=== PATIENT | female | born 1970 | race Caucasian/White ===

== ENCOUNTER → 2016-07-04 | Outpatient (CLI) | payer BC ==
--- NOTE | 2016-07-04 15:48 | XR ---
Left RIBS HISTORY: Cough, chest pain 4 views of the left ribs correlated to prior exam chest x-ray November No displaced rib fractures. No pneumothorax or pleural effusion. Patient is post median sternotomy. IMPRESSION: No acute abnormality evident, bone scan could be performed for increased sensitivity as i ndicated.
== END | disposition home or self-care (01) ==
LOC: RADXRMAIN 14:57
PROVIDERS: ATTEND Internal Medicine
DX: J06.9 Acute upper respiratory infection, unspecified (principal); R07.81 Pleurodynia

== ENCOUNTER → 2016-08-21 | Outpatient (CLI) | payer BC ==
--- NOTE | 2016-08-22 07:31 | XR ---
EXAMINATION TYPE: XR chest 2V DATE OF EXAM: 08/21/2016 4:27 PM COMPARISON: NONE INDICATION: Increasing shortness of breath TECHNIQUE: Single frontal view of the chest is obtained. FINDINGS: The heart size is normal. The pulmonary vasculature is normal. The lungs are clear. IMPRESSION: 1. No acute pulmonary process.
== END ==
LOC: RADXRMAIN 16:10
PROVIDERS: ATTEND Internal Medicine
DX: R07.9 Chest pain, unspecified (principal); R09.1 Pleurisy
CPT/HCPCS: 36415; 71020; 82785

== ENCOUNTER → 2019-04-11 | Outpatient (CLI) | payer BC ==
[2019-04-11 11:38] LABS: HCT 42.2 % (34.0-46.0); HGB 14.1 gm/dL (11.4-16.0); MCH 29.5 pg (25.0-35.0); MCHC 33.4 g/dL (31.0-37.0); MCV 88.4 fL (80.0-100.0); Platelet Count 267 k/uL (150-450); RBC 4.78 m/uL (3.80-5.40); RDW 12.9 % (11.5-15.5); WBC 5.6 k/uL (3.8-10.6)
== END | disposition home or self-care (01) ==
LOC: LABWHC1 10:57
PROVIDERS: ATTEND Orthopaedic Surgery
DX: Z01.812 Encounter for preprocedural laboratory examination (principal); M17.11 Unilateral primary osteoarthritis, right knee
CPT/HCPCS: 36415; 85027; 87070

== ENCOUNTER → 2020-04-20 | Outpatient (CLI) | payer BC ==
--- NOTE | 2020-04-21 06:57 | XR ---
EXAMINATION TYPE: XR chest 2V DATE OF EXAM: 04/20/2020 COMPARISON: 08/21/2016 HISTORY: Chest pain TECHNIQUE: Frontal and lateral views of the chest are obtained. FINDINGS: There is no focal air space opacity. No evidence for pneumothorax. No pleural effusion. The cardiac silhouette size is within normal limits. The osseous structures are grossly intact. IMPRESSION: 1. No acute cardiopulmonary process.
== END | disposition home or self-care (01) ==
LOC: RAD 16:28
PROVIDERS: ATTEND Family Medicine
DX: R05 Cough (principal)
CPT/HCPCS: 71046

== ENCOUNTER → 2020-04-26 | Outpatient (CLI) | payer BC | END | disposition home or self-care (01) | LOC: LABWHC1 13:33 | PROVIDERS: ATTEND Family Medicine | DX: Z20.828 Contact with and (suspected) exposure to other viral communicable diseases (principal) | CPT/HCPCS: U0003; C9803 ==

== ENCOUNTER → 2022-02-15 | Outpatient (CLI) | payer BC ==
--- NOTE | 2022-02-17 13:34 | MM ---
Reason for Exam: Screening (asymptomatic). Last mammogram was performed 7 year(s) and 7 month(s) ago. Patient History: Menarche at age 14. Patient has no children. Hormonal Contraceptives, starting at age 37 for 3 years. 06/02/2002, Benign Ultrasound-Guided Core Biopsy on the left side. Paternal grandmother had breast cancer. Last menstrual period: 02/13/2022 Risk Values: Beth 5 year model risk: 1.3%. NCI Lifetime model risk: 11.6%. Prior Study Comparison: 04/24/2008 Bilateral Screening Mammogram, [facility]. 01/20/2011 Bilateral Diagnostic Mammogram, [facility]. 07/23/2014 Bilateral Screening Mammogram, [facility]. Tissue Density: The breast tissue is heterogeneously dense. This may lower the sensitivity of mammography. Findings: Analyzed By CAD. Chronic nodularity is within the left breast. No suspicious groups of microcalcifications, spiculated or lobular masses, architectural distortion or other secondary signs of malignancy are mammographically apparent. Overall Assessment: Benign, BI-RAD 2 Management: Screening Mammogram of both breasts in 1 year. A negative mammogram report should not preclude additional follow up of suspicious palpable abnormalities. Patient should continue monthly self breast exam. A clinical breast exam by your physician is recommended on an annual basis and results should be correlated with mammographic findings. Electronically signed and approved by: Hernesto Resendiz D.O. Radiologis
== END | disposition home or self-care (01) ==
LOC: RADMAMWWP 16:03
PROVIDERS: ATTEND Obstetrics & Gynecology
DX: Z12.31 Encounter for screening mammogram for malignant neoplasm of breast (principal)
CPT/HCPCS: 77063; 77067

== ENCOUNTER → 2022-03-02 | Outpatient (CLI) | payer BC ==
[2022-03-02 18:23] LABS: Basophils # (A) 0.07 X 10*3/uL (0.00-0.10); Basophils % (A) 1.1 %; Eosinophils # (A) 0.22 X 10*3/uL (0.04-0.35); Eosinophils % (A) 3.6 %; HCT 38.2 % (37.2-46.3); HGB 12.3 g/dL (12.0-15.0); Immature Grans, Automated 0.3 %; Lymphocytes # (A) 1.49 X 10*3/uL (0.90-5.00); Lymphocytes % (A) 24.3 %; MCH 28.7 pg (27.0-32.0); MCHC 32.2 g/dL (32.0-37.0); Mean Platelet Volume 11.6 fL (9.5-12.2); Monocytes # (A) 0.51 X 10*3/uL (0.20-1.00); Monocytes % (A) 8.3 %; NRBC Per 100 WBC 0 /100 WBCS (0.0-0.0); Neutrophils # (A) 3.81 X 10*3/uL (1.80-7.70); Neutrophils % (A) 62.4 %; Platelet Count 294 X 10*3/uL (140-440); RBC 4.29 X 10*6/uL (4.10-5.20); RDW 13.9 % (11.5-14.5); WBC 6.12 X 10*3/uL (4.50-10.00)
== END | disposition home or self-care (01) ==
LOC: LABPAT 13:25
PROVIDERS: ATTEND Obstetrics & Gynecology
DX: Z01.812 Encounter for preprocedural laboratory examination (principal); Z01.818 Encounter for other preprocedural examination; N93.8 Other specified abnormal uterine and vaginal bleeding
CPT/HCPCS: 85025; 93005

== ENCOUNTER 2022-03-06 06:59 | Day surgery (SDC) | payer BC ==
[2022-03-01 13:57] VITALS: BMI 33.0
--- NOTE | 2022-03-03 12:28 | HP ---
HISTORY AND PHYSICAL HISTORY: This is a 51-year-old 0 woman with findings of endometrial polyp on pelvic ultrasound in the setting of dysmenorrhea and irregular uterine bleeding. Secondary to patient discomfort and difficulty visualizing, office biopsy procedure was not possible. She was therefore scheduled for a diagnostic hysteroscopy with dilation and curettage procedure. ALLERGIES: Statin drugs cause swelling. MEDICATIONS: 1. Metoprolol tartrate 25 mg daily. 2. Naproxen 500 mg b.i.d. p.r.n. 3. Topamax 100 mg b.i.d. 4. Zyrtec 10 mg daily. 5. Hydrocodone/acetaminophen 7.5/325 mg q.6 hours p.r.n. PAST MEDICAL HISTORY: Migraine headaches, herniated disk disease, fibroid uterus, and dysmenorrhea. PAST SURGICAL HISTORY: Back surgery 2009, benign right breast biopsy in 2002, colonoscopy, hemorrhoidectomy, inguinal hernia repair, and knee surgery. She has also had an atrial myxoma removal. REPRODUCTIVE HISTORY: She is a 1 with an LMP of 01/19/2022. She is not on contraception. No history of abnormal Pap smears or STDs. SOCIAL HISTORY: Negative for tobacco, alcohol, and drug use. She does use recreational marijuana. FAMILY HISTORY: Positive for colon cancer, diabetes, stroke, and hypertension. REVIEW OF SYSTEMS: Negative except for irregular vaginal bleeding. PHYSICAL EXAMINATION: VITAL SIGNS: Weight 230 pounds, height 5 feet 9 inches, blood pressure 110/72, and pulse 72. GENERAL: This is a very pleasant female, in no apparent distress. HEENT: Exam is unremarkable. LUNGS: Clear to auscultation bilaterally. HEART: Regular rate and rhythm. ABDOMEN: Soft and nontender with no rebound, no guarding, and no flank pain. LOCAL AREA NETWORK ADMINISTRATOR: On pelvic examination, the cervix is difficult to visualize secondary to patient's body habitus. There are no gross lesions or abnormalities appreciated. The uterus is limited in exam secondary to body habitus, however, no pelvic masses are palpable. NEUROLOGIC: Grossly intact with no focal deficits. Mood and affect are normal. ASSESSMENT: This is a 51-year-old 0 woman with irregular vaginal bleeding, dysmenorrhea, and findings of possible endometrial polyp on ultrasound. Unable to tolerate tissue sampling in the office setting due to inadequate visualization and patient discomfort. She is therefore scheduled for a diagnostic hysteroscopy with dilation and curettage. This procedure has been reviewed in detail with the patient including risks which include bleeding, infection, injury to the uterus with possible uterine perforation, inadequate pathology specimen and/or ongoing bleeding. The patient understands these risks and agrees to proceed. MMODL / IJN: [id number] /
[~2022-03-06 06:59] MED LIST: Pre Op ABX Message 1 EACH MISC MISCELLANE ONE
[2022-03-06] MEDS ORDERED: LACTATED RINGERS 1,000 ML IV ONE (07:18)
[2022-03-06] MEDS ORDERED: LACTATED RINGERS 1,000 ML IV SCH (07:19)
[2022-03-06] MEDS ORDERED: DEXAMETHASONE SOD PHOSPHATE 4 MG/ML 1 ML VIAL IV ONE (07:19)
[2022-03-06] MEDS ORDERED: LIDOCAINE 1% (10MG/ML) FOR IV START INTRADERMA PRN (07:19)
[2022-03-06] MEDS ORDERED: SCOPOLAMINE 1 MG/72 HR PATCH TRANSDERM ONE (07:19)
[2022-03-06] MEDS ORDERED: ONDANSETRON 4 MG/2 ML VIAL IVP ONE (07:19)
[2022-03-06 07:42] LABS: Glucose,Whole Blood 102 mg/dL (70-110)
[2022-03-06] MEDS ORDERED: MIDAZOLAM 2 MG/2 ML VIAL ONE (08:17)
[2022-03-06] MEDS ORDERED: LIDOCAINE 2% INJ 20 MG/ML (2 ML VIAL) ONE (08:17)
[2022-03-06] MEDS ORDERED: KETOROLAC 15 MG/ML 1 ML VIAL ONE (08:17)
[2022-03-06] MEDS ORDERED: PROPOFOL 10 MG/ML 20 ML VIAL IV ONE (08:17)
[2022-03-06] MEDS ORDERED: fentaNYL (PF) 50 MCG/ML 2 ML AMP ONE (08:17)
--- NOTE | 2022-03-06 09:02 | P.OP ---
Date of Procedure: 03/06/22 Preoperative Diagnosis: Dysfunctional uterine bleeding and possible endometrial polyp Postoperative Diagnosis: Same Procedure(s) Performed: Diagnostic hysteroscopy and dilation and curettage Anesthesia: MAC Surgeon: Devika Law Estimated Blood Loss (ml): 5 IV fluids (ml): 350 Urine output (ml): 25 Pathology: other (Endometrial curettings) Condition: stable Disposition: PACU Operative Findings: Shaggy endometrium with possible polyp emanating from the posterior fundal region Description of Procedure: After the patient was met in the preoperative holding area and all questions were answered, she was taken to the operating room where anesthetic was admitted administered without incident. Appropriate timeout procedure was undertaken. She was positioned, prepped and draped in the dorsal lithotomy position. Bladder was drained for 25 mL of clear urine. Exam under anesthetic was undertaken. Speculum was placed in the vagina and the cervix was grasped anteriorly with a single-tooth tenaculum. Lidocaine plus epinephrine paracervical block was placed. The uterus was sounded to 7 cm. The cervix was then sequentially dilated to allow for passage of the diagnostic hysteroscope. Hysteroscope was introduced and the above findings were noted. Hysteroscope was removed and the cervix was further dilated to allow for passage of the small sharp banjo curet. The uterus was circumferentially curettaged with a small amount of tissue obtained consistent with findings on hysteroscopy. Following curettage the hysteroscope was reintroduced and the no further endometrial debris was noted. There is no active bleeding. Instruments were then removed from the uterus and cervix. Cervix was observed and no active bleeding was noted. The patient was therefore awoken from anesthetic and transported recovery area in good condition.
[2022-03-06 09:14] VITALS: TEMP 97.5
[2022-03-06 09:48] VITALS: RESP 18
[2022-03-06 10:17] VITALS: BP 109/75; PULSE 64
[2022-03-07] MEDS ORDERED: HYDROmorphone 0.5 MG/0.5 ML SYRINGE IVP PRN (07:00)
== END 2022-03-06 10:24 | disposition home or self-care (01) ==
LOC: OR 06:59
PROVIDERS: ATTEND Obstetrics & Gynecology
DX: N93.8 Other specified abnormal uterine and vaginal bleeding (principal); Z80.0 Family history of malignant neoplasm of digestive organs; Z82.49 Family history of ischemic heart disease and other diseases of the circulatory system; Z83.3 Family history of diabetes mellitus; Z88.8 Allergy status to other drugs, medicaments and biological substances; Z79.899 Other long term (current) drug therapy
CPT/HCPCS: 81025; 88305; 84703; 58558; J2250; J2405; J3010; J1885; J2704; J2001

== ENCOUNTER → 2022-08-28 | Outpatient (CLI) | payer BC ==
[2022-08-28 15:37] LABS: Basophils # (A) 0.06 X 10*3/uL (0.00-0.10); Basophils % (A) 1.3 %; Eosinophils # (A) 0.12 X 10*3/uL (0.04-0.35); Eosinophils % (A) 2.6 %; HGB 13.4 g/dL (12.0-15.0); Immature Grans, Automated 0.2 %; Lymphocytes % (A) 25.7 %; MCH 28.5 pg (27.0-32.0); MCHC 31.9 g/dL (32.0-37.0); MCV 89.2 fL (80.0-97.0); Mean Platelet Volume 11.9 fL (9.5-12.2); Monocytes # (A) 0.36 X 10*3/uL (0.20-1.00); Monocytes % (A) 7.7 %; NRBC Per 100 WBC 0 /100 WBCS (0.0-0.0); Neutrophils # (A) 2.92 X 10*3/uL (1.80-7.70); Neutrophils % (A) 62.5 %; Platelet Count 245 X 10*3/uL (140-440); RBC 4.71 X 10*6/uL (4.10-5.20); RDW 13.2 % (11.5-14.5); WBC 4.67 X 10*3/uL (4.50-10.00)
[2022-08-28 15:49] LABS: African American GFR (CKD) 91.7 (60.0-200.0); Anion Gap 10.7 mmol/L (10.00-18.00); Blood Urea Nitrogen 14.5 mg/dL (9.0-27.0); Carbon Dioxide 21.9 mmol/L (20.0-27.5); Non-African American GFR(CKD) 79.1 (60.0-200.0); Potassium 4.2 mmol/L (3.5-5.5)
== END | disposition home or self-care (01) ==
LOC: LABPAT 11:57
PROVIDERS: ATTEND Obstetrics & Gynecology Obstetrics
DX: Z01.812 Encounter for preprocedural laboratory examination (principal); N93.8 Other specified abnormal uterine and vaginal bleeding; R10.2 Pelvic and perineal pain; N80.00 Endometriosis of the uterus, unspecified
CPT/HCPCS: 80051; 82565; 82947; 84520; 85025; 87086; 93005

== ENCOUNTER 2022-09-05 05:41 | Day surgery (SDC) | payer BC ==
--- NOTE | 2022-09-04 16:40 | P.HPOB ---
History of Present Illness H&P Date: 09/04/22 Chief Complaint: dysfunctional uterine bleeding, Dysmenorrhea, adenmyosis on US This is a 51-year-old 0 that presents for scheduled robotic-assisted vaginal hysterectomy with bilateral salpingectomy, diagnostic cystoscopy. Patient has a history significant for dysfunction uterine bleeding, dysmenorrhea, adenomyosis given her ultrasound findings. Patient a recent hysteroscopy D&C for an endometrial polyp which she states she got a "1 month" reprieve from bleeding after the procedure and has subsequently continued to have dysfunctional uterine bleeding and chronic pelvic pain. Ultrasound with concerns for adenomyosis. Given ultrasound findings I am concerned she would develop post ablation syndrome from an endometrial ablation and ultimately end up with robotic hysterectomy. Patient does not desire childbearing and wishes definitive treatment with hysterectomy. Review of Systems Constitutional: Denies fatigue, Denies fever Ears, nose, mouth and throat: Denies headache Cardiovascular: Reports leg edema Respiratory: Denies dyspnea Gastrointestinal: Denies constipation, Denies diarrhea, Denies nausea, Denies v omiting Genitourinary: Reports as per HPI, Reports abnormal vaginal bleeding, Reports dysmenorrhea, Denies Past Medical History Past Medical History: Musculoskeletal Disorder Additional Past Medical History / Comment(s): TACHYCARDIA-takes metoprolol for, migraines, hx. of myxoma-had removed 2002, sees card. yearly @[place], BACK PAIN, SEASONAL ALLERGIES, KIDNEY STONES History of Any Multi-Drug Resistant Organisms: None Reported Past Surgical History: Back Surgery, Hernia Repair, Joint Replacement, Orthopedic Surgery Additional Past Surgical History / Comment(s): CARDIAC TUMOR(MYXOMA) REMOVED 2002, left shoulder surg. as a teen. RIGHT TOTAL KNEE REPLACED. RIGHT FOOT SURGERY. right SHOULDER SURGERY Past Anesthesia/Blood Transfusion Reactions: No Reported Reaction Smoking Status: Never smoker - Past Family History Mother Family Medical History: No Reported History Medications and Allergies Home Medications Medication Instructions Recorded Confirmed Type Cetirizine HCl [Zyrtec] 10 mg PO DAILY 03/01/22 08/29/22 History HYDROcodone/APAP 7.5-325MG [[place] 1 tab PO TID PRN 03/01/22 08/29/22 History 7.5-325] Metoprolol Tartrate 12.5 mg PO DAILY 03/01/22 08/29/22 History Nf-Probiotic/Prebiotic Supplem 1 tab PO DAILY 03/01/22 08/29/22 History Topiramate [Topamax] 100 mg PO DAILY 03/01/22 08/29/22 History Naproxen [Naprosyn] 500 mg PO BID 08/29/22 08/29/22 History Allergies Allergy/AdvReac Type Severity Reaction Status Date / Time pneumococcal vaccine Allergy Unknown Verified 08/29/22 10:52 Vecsecy-BGH-KrM Reductase Allergy Swelling Verified 08/29/22 10:52 Inhibitor Exam Osteopathic Statement: *. No significant issues noted on an osteopathic structural exam other than those noted in the History and Physical/Consult. In general well-nourished well-developed non female in no acute distress, breathing is nonlabored, heart has a regular rate and rhythm, - OBG Physical Exam Abdomen: non tender Abdomen: bowel sounds normal Vulva: both: normal Vagina: no discharge, no rectocele, no cystocele Cervix: no lesion, no friable Uterus: normal size, normal contour Anus/Rectum: normal perianal skin Assessment and Plan (1) DUB (dysfunctional uterine bleeding) Status: Acute Code(s): N93.8 - OTHER SPECIFIED ABNORMAL UTERINE AND VAGINAL BLEEDING SNOMED Code(s): 22593294902423 (2) Pelvic pain Status: Acute Code(s): R10.2 - PELVIC AND PERINEAL PAIN SNOMED Code(s): 37061641 (3) Dysmenorrhea Status: Acute Code(s): N94.6 - DYSMENORRHEA, UNSPECIFIED SNOMED Code(s): 780555223 (4) Adenomyosis Status: Acute Code(s): N80.03 - ADENOMYOSIS OF THE UTERUS SNOMED Code(s): 224717603 Plan: 51 yo 0 that presents for scheduled robotic cyst vaginal hysterectomy with bilateral salpingectomy, diagnostic cystoscopy, possible open. Patient is counseled on procedure given her symptoms and all questions are answered. Patient is counseled on risks of surgery including but not limited to infection, bleeding, damage to bladder, bowel, ureteric injury. Patient states understanding of the procedure and its risks. Patient wishes to proceed.
[~2022-09-05 05:41] MED LIST changes: +HYDROmorphone 0.5 MG/0.5 ML SYRINGE IVP PRN; +LACTATED RINGERS 1,000 ML IV SCH; +ONDANSETRON 4 MG/2 ML VIAL IVP ONE; -Pre Op ABX Message 1 EACH MISC MISCELLANE ONE; +fentaNYL (PF) 50 MCG/ML 2 ML AMP IV PRN
[2022-09-05] MEDS ORDERED: ACETAMINOPHEN IV (For NPO) 1,000 MG in EMPTY BAG 1 BAG IVPB PRN (06:00)
[2022-09-05] MEDS ORDERED: ONDANSETRON 4 MG/2 ML VIAL ONE (06:18)
[2022-09-05] MEDS ORDERED: MIDAZOLAM 2 MG/2 ML VIAL IVP ONE (07:06)
[2022-09-05] MEDS ORDERED: fentaNYL (PF) 50 MCG/1 ML VIAL IVP ONE (07:06)
[2022-09-05] MEDS ORDERED: diphenhydrAMINE 50 MG/ML 1 ML VIAL ONE (07:23)
[2022-09-05] MEDS ORDERED: diphenhydrAMINE 50 MG/ML 1 ML VIAL IVP ONE (07:24)
[2022-09-05] MEDS ORDERED: PHENYLEPHRINE-0.9% NACL SYG 1,000 MCG/10 ML SYRINGE ONE (07:29)
[2022-09-05] MEDS ORDERED: LIDOCAINE 2% INJ 20 MG/ML (2 ML VIAL) ONE (07:29)
[2022-09-05] MEDS ORDERED: GLYCOPYRROLATE 0.2 MG/ML 2 ML VIAL ONE (07:29)
[2022-09-05] MEDS ORDERED: fentaNYL (PF) 50 MCG/ML 2 ML AMP ONE (07:29)
[2022-09-05] MEDS ORDERED: PROPOFOL 10 MG/ML 20 ML VIAL IV ONE (07:29)
[2022-09-05] MEDS ORDERED: ROCURONIUM 10 MG/ML (5 ML VIAL) IV ONE (07:29)
[2022-09-05] MEDS ORDERED: SUCCINYLCHOLINE CHLORIDE 200 MG/10 ML VIAL IV ONE (07:29)
[2022-09-05] MEDS ORDERED: NEOSTIGMINE 1 MG/ML 10 ML VIAL ONE (07:29)
[2022-09-05] MEDS ORDERED: BUPIVACAINE (PF) 0.25% 30 ML VIAL SQ ONE ×2 (08:08→08:50)
[2022-09-05] MEDS ORDERED: diphenhydrAMINE 50 MG/ML 1 ML VIAL IVP PRN (08:20)
[2022-09-05] MEDS ORDERED: MORPHINE SULFATE 2 MG/ML SYRINGE IVP PRN (08:20)
[2022-09-05] MEDS ORDERED: NALOXONE 0.4 MG/ML 1 ML VIAL IV PRN (08:20)
--- NOTE | 2022-09-05 08:21 | P.ANPRN ---
Procedure Note - Anesthesia - Epidural/Spinal Spinal Time Out Performed: Yes Date of Procedure: 09/05/22 Procedure Start Time: 07:05 Procedure Stop Time: 07:11 Location of Patient: PreOp Indication: Acute Post-Operative Pain Sedation Type: Sedate with meaningful contact maintained Preparation: Sterile Prep Position: Sitting Catheter: None Needle Guage: 25 Injectate: Duramorph 300 mcg, fentanyl 25mcg Blood Aspirated: No Pain Paresthesia on Injection Noted: No Events: Uneventful and Well Tolerated
[2022-09-05] MEDS ORDERED: Acetaminophen-Codeine 300-30mg TAB PO PRN ×2 (09:35)
[2022-09-05] MEDS ORDERED: SIMETHICONE 80 MG CHEWABLE PO PRN (09:35)
[2022-09-05] MEDS ORDERED: IBUPROFEN IV 800 MG in SODIUM CHLORIDE 0.9% 250 ML IV ONE (09:41)
--- NOTE | 2022-09-05 09:49 | P.OP ---
Date of Procedure: 09/05/22 Preoperative Diagnosis: pelvic pain, dysfunctional uterine bleeding, suspected adenomyosis on ultrasound Postoperative Diagnosis: same plus endometriosis Procedure(s) Performed: robotic cyst vaginal hysterotomy, left salpingo-oophorectomy, right salpingect lelia, diagnostic cystoscopy Anesthesia: ANNAMARIE Surgeon: Albertina Lamb Outboard Motor Assembler #1: Devika Law Estimated Blood Loss (ml): 50 IV fluids (ml): 400 Urine output (ml): 100 Pathology: other (uterus, cervix, bilateral fallopian tubes, left ovary) Condition: stable Disposition: PACU Indications for Procedure: 51-year-old patient with increasing dysfunctional uterine bleeding and pain. Patient underwent hysteroscopy dilation and curettage with normal-appearing uterine cavity. Patient had an ultrasound revealing suspicion for adenomyosis given uterine texture. Patient denies desire for fertility and wishes definitive treatment with hysterectomy. Operative Findings: globular slightly enlarged uterine cavity is appreciated. Scarring is noted on the left ovary to the posterior uterine wall, endometrial implants were appreciated throughout the pelvis. Right ovary with simple appearing cyst Description of Procedure: patient was taken back to the operating suite where general anesthesia was obtained without difficulty by the anesthesia department. She was prepped and draped in the normal sterile fashion in the dorsal lithotomy position. A Loza catheter was then placed under sterile technique. Weighted speculum was placed in the posterior vaginal vault the anterior lip of the cervix was visualized and grasped with a single-tooth tenaculum. The endocervical canal was then serially dilated with some resistance. A [employer] uterine manipulator was advanced into the uterus as a means to manipulate the uterus throughout the procedure. The balloon was insufflated with air the cervical cap was placed snugly against the cervix. At this point all instruments were removed from the patient's vaginal vault. Attention turned the patient's abdomen where approximately 2 finger breaths above the umbilicus a small skin incision is made. Through this incision appears needles placed. Once the Veress needle was deemed to be in the appropriate position with a drop of CO2 pressure with insufflation of CO2 gas CO2 insufflation was allowed to occur. 3 L of gas were used to obtain pneumoperitoneum. At this time an 8 mm trocar with a cost reduction engineer scope in place was placed through the skin incision and toward the pneumoperitoneum. The above-noted findings are visualized. Additional port sites are then placed at 10 cm lateral and 3 cm inferior to midline port these are 8 mm ports and placed under direct visualization. In the patient's left upper quadrant a 12 mm trocar and sleeve is placed under direct visualization. At this time attention was then turned to the V care once again to ensure proper placement. Once placement was appropriate the patient was positioned properly for the robotic procedure at 25 of Trendelenburg. The robot was undocked in the usual fashion. The operative arms are now placed. In the right operative arm the monopolar scissors is placed in left operative arm the bipolar forceps is placed. Fetus was turned to the patient's left adnexa the left ovary was appeared significantly scarred to the posterior uterine wall therefore the left ovary and tube were then removed. The infundibulopelvic ligaments coagulated distally and proximally and divided. This continued through the broad and toward the round which was coagulated distally and proximal plane divided. Hemostasis was appreciated. The bladder flap from the left was then created using sharp and blunt dissection. Attention was then turned to the patient's right fallopian tube which was elevated and the mesosalpinx was coagulated and transected. Hemostasis was appreciated. The uterine ovarian ligament was then coagulated distally and proximal plane divided. The round ligament was coagulated distally and proximal plane divided. The bladder flap from the right was then created using sharp and blunt dissection. Any points of bleeding were made hemostatic with the monopolar cautery at this time. The ascending branch the uterine artery from the right was then visualized coagulated and transected. Hemostasis was noted. This was then repeated on the opposite side. Cup placement was then confirmed and a colpotomy incision was made in a circumferential fashion. Hemostasis was appreciated throughout. The uterus was then delivered through the vaginal opening. The pelvis then copiously irrigated. The vaginal vault was closed with 0 Vicryl in [id number] sutures. Proximal labor for sutures were used to obtain closure. Hemostasis was appreciated. A small amount of oozing was noted throughout the procedure therefore Surgicel powder was placed along the vaginal cuff. Hemostasis was appreciated on both adnexal pedicles. At this time all instrument removed from the patient's abdomen. Attention then turned the patient's Loza catheter which was removed without difficulty clear urine was noted in the Loza catheter tubing. A cystoscopy was then performed. The bladder bubbles appreciated an intact cavity was visualized. Both ureteral orifices were noted be spilling clear yellow urine. The cystoscope was then removed and the Loza was then replaced. The vaginal vault was cleared of any clots and debris hemostasis was appreciated. At this time attention was then turned the patient's abdomen where the skin incisions were closed 4-0 Vicryl in a subcuticular fashion. Suture strips and sterile dressings were applied. All counts were noted be correct 2 at the end of the procedure. Patient tolerated procedure well and was taken the recovery room awake in stable condition.
[2022-09-05] MEDS ORDERED: HYDROmorphone 0.5 MG/0.5 ML SYRINGE IVP ONE (10:06)
[2022-09-05] MEDS ORDERED: ACETAMINOPHEN TAB 325 MG TAB PO PRN (15:08)
[2022-09-05 15:25] VITALS: RESP 16
[2022-09-05] MEDS: IBUPROFEN 600 MG TAB PO PRN (18:29)
[2022-09-05] MEDS: SENNOSIDES-DOCUSATE SODIUM 1 EACH TAB PO SCH (20:39)
[2022-09-06 05:38] VITALS: TEMP 98.4
--- NOTE | 2022-09-06 06:09 | P.PN ---
Progress Note - Text Progress Note Date: 09/06/22 Suman is postop day 1 from a robotic hysterectomy, she received a Duramorph spinal for postoperative pain and has been doing well overnight. She has received 1 dose of acetaminophen and 1 dose of ibuprofen. She has been able to ambulate. Her pain is between 2 and 4 out of 10. There is no significant pruritus or mental status changes. Pain is under good control. She will be discharged after being seen by her surgeon.
[2022-09-06 08:09] LABS: Basophils % (A) 0 %; Eosinophils # (A) 0.2 k/uL (0-0.7); Eosinophils % (A) 2 %; HCT 39.3 % (34.0-46.0); HGB 12.8 gm/dL (11.4-16.0); Lymphocytes # (A) 1.1 k/uL (1.0-4.8); Lymphocytes % (A) 15 %; MCH 28.8 pg (25.0-35.0); MCHC 32.5 g/dL (31.0-37.0); MCV 88.4 fL (80.0-100.0); Mean Platelet Volume 9.5; Monocytes # (A) 0.6 k/uL (0-1.0); Monocytes % (A) 8 %; Neutrophils # (A) 5.5 k/uL (1.3-7.7); Neutrophils % (A) 73 %; Platelet Count 156 k/uL (150-450); RBC 4.45 m/uL (3.80-5.40); RDW 13.7 % (11.5-15.5); WBC 7.5 k/uL (3.8-10.6)
[2022-09-06] MEDS: SENNOSIDES-DOCUSATE SODIUM 1 EACH TAB PO SCH (08:14)
[2022-09-06] MEDS: IBUPROFEN 600 MG TAB PO PRN (08:14)
[2022-09-06 08:36] VITALS: BP 111/66; PULSE 72
[2022-09-06] MEDS ORDERED: ACETAMINOPHEN TAB 325 MG TAB PO PRN (09:40)
--- NOTE | 2022-09-06 10:08 | P.DS ---
Providers Date of admission: 09/05/2022 Expected date of discharge: 09/06/22 Attending physician: Albertina Lamb Primary care physician: Suman Monterroso - Discharge Diagnosis(es) (1) DUB (dysfunctional uterine bleeding) Current Visit: No Status: Acute (2) Pelvic pain Current Visit: No Status: Acute (3) Dysmenorrhea Current Visit: No Status: Acute (4) Adenomyosis Current Visit: No Status: Acute (5) S/P hysterectomy Current Visit: Yes Status: Acute (6) Endometriosis Current Visit: Yes Status: Acute Hospital Course: This is a 51 yo female that has been dealing with heavy menstrual bleeding and increasing dysmenorrhea. she did under go H DC which she states helped for a short bit, but her menses were back to normal soon after the procedure. She had an ultrasoudn revealing a concerns for adenomyosis and given she isnt interested in fertility she did request definitive treatment with hysterectomy. she was counseled on options and elected RAV with b/l salpingectomy, possible oophorectomy. she was taken to the OR and RAVH LSO right salpingectomy, DC is preformed without difficulty. Please see operative report for full details on the surgery. she is doing well post operatively on this post op day 1. she is ambulating and voiding without difficulty, she is tolerating a regular diet without nausea or vomiting. she states her pain is well controlled. she denies any VB. she would like discharge home today. Patient Condition at Discharge: Good Plan - Discharge Summary Discharge Rx Participant: Yes New Discharge Prescriptions: No Action Topiramate [Topamax] 100 mg PO DAILY Metoprolol Tartrate 12.5 mg PO DAILY Nf-Probiotic/Prebiotic Supplem 1 tab PO DAILY Naproxen [Naprosyn] 500 mg PO BID HYDROcodone/APAP 7.5-325MG [[place] 7.5-325] 1 tab PO TID PRN PRN Reason: Pain Cetirizine HCl [Zyrtec] 10 mg PO DAILY Discharge Medication List Cetirizine HCl [Zyrtec] 10 mg PO DAILY 03/01/22 [History] HYDROcodone/APAP 7.5-325MG [[place] 7.5-325] 1 tab PO TID PRN 03/01/22 [History] Metoprolol Tartrate 12.5 mg PO DAILY 03/01/22 [History] Nf-Probiotic/Prebiotic Supplem 1 tab PO DAILY 03/01/22 [History] Topiramate [Topamax] 100 mg PO DAILY 03/01/22 [History] Naproxen [Naprosyn] 500 mg PO BID 08/29/22 [History] Follow up Appointment(s)/Referral(s): Albertina Lamb DO [Doctor of Osteopathic Medicine] - 2 Weeks Patient Instructions/Handouts: Laparoscopic Hysterectomy (GEN), Laparoscopic Hysterectomy (DC) Activity/Diet/Wound Care/Special Instructions: no tub baths or intercourse until cleared by myself. She is counseled on post op bleeding. She is counseled on pain control post operatively, she in addition has pain medication from her pain doctor. she is to follow up in 2 weeks for routine post op check. should she have any concerns prior to this appointment she is asked to call for an appointment prior to her post op appt. Discharge Disposition: HOME SELF-CARE
== END 2022-09-06 13:20 | disposition home or self-care (01) ==
LOC: OR 05:41 → 4FBP 09:36 → OR 09-06 13:20
PROVIDERS: ATTEND Obstetrics & Gynecology Obstetrics
DX: N84.0 Polyp of corpus uteri (principal); N93.8 Other specified abnormal uterine and vaginal bleeding; G89.18 Other acute postprocedural pain; Z98.890 Other specified postprocedural states; Z96.60 Presence of unspecified orthopedic joint implant; Z79.1 Long term (current) use of non-steroidal anti-inflammatories (NSAID); Z88.8 Allergy status to other drugs, medicaments and biological substances; Z87.442 Personal history of urinary calculi; Z79.899 Other long term (current) drug therapy
CPT/HCPCS: 81025; 86900; 86901; 85025; 86850; 88307; 84703; 58262; 64999; J2250; J1200; J0690; J2405; J0131; J1741; J1170; J3010

== ENCOUNTER 2024-01-22 08:43 | Day surgery (SDC) | payer BC ==
[2024-01-18 11:30] VITALS: BMI 30.8
[2024-01-22 09:16] VITALS: TEMP 97.2
[2024-01-22] MEDS: IV FLUID CONTINUATION 1,000 ML IV ONE (09:22)
[2024-01-22] MEDS: LACTATED RINGERS 1,000 ML IV SCH (09:22)
[2024-01-22] MEDS ORDERED: PROPOFOL 10 MG/ML 20 ML VIAL IV ONE (09:24)
[2024-01-22 09:26] LABS: Glucose,Whole Blood 88 mg/dL (70-110)
--- NOTE | 2024-01-22 09:39 | P.PCN ---
Date of Procedure: 01/22/24 Procedure(s) Performed: BRIEF HISTORY: Patient is a 53-year-old pleasant white female scheduled for an elective colonoscopy as a part of screening for colorectal neoplasia PROCEDURE PERFORMED: Colonoscopy. PREOPERATIVE DIAGNOSIS: Screening for colon cancer. IV sedation per Anesthesia. PROCEDURE: After informed consent was obtained, the patient, was brought into the endoscopy unit. IV sedation was administered by Anesthesia under continuous monitoring. Digital rectal examination was normal. Initially the Olympus CF-160 flexible video colonoscope was then inserted in the rectum, gradually advanced into the cecum without any difficulty. Careful examination was performed as the scope was gradually being withdrawn. Ileocecal valve and the appendiceal orifice were visualized and appeared normal. Prep was excellent. Mucosa of the cecum, ascending colon, transverse colon, descending colon, sigmoid colon, and rectum appeared normal. Retroflexion was performed in the rectum and no lesions were seen. The patient tolerated the procedure well. IMPRESSION: Normal-appearing colon from rectum to cecum with no evidence of colorectal neoplasia. RECOMMENDATIONS: Findings of this examination were discussed with the patient as well as her family. She was advised to have repeat screening colonoscopy in 10 years.
[2024-01-22 10:02] VITALS: BP 111/70; PULSE 58; RESP 16
== END 2024-01-22 10:31 | disposition home or self-care (01) ==
LOC: ORWHC2ENDO 08:43
PROVIDERS: ATTEND Internal Medicine Gastroenterology
DX: Z12.11 Encounter for screening for malignant neoplasm of colon (principal); G43.909 Migraine, unspecified, not intractable, without status migrainosus; Z88.8 Allergy status to other drugs, medicaments and biological substances; Z79.899 Other long term (current) drug therapy; Z90.710 Acquired absence of both cervix and uterus
CPT/HCPCS: 45378; J2704